=== PATIENT | female | born 1975 | race Caucasian/White ===

== ENCOUNTER 2018-05-07 09:25 | Outpatient (CLI) | payer BC | END 2018-05-07 09:26 | disposition home or self-care (01) | LOC: BICRAD 09:25 | PROVIDERS: ATTEND Family Medicine | DX: S93.401D Sprain of unspecified ligament of right ankle, subsequent encounter (principal) ==

== ENCOUNTER 2019-04-17 07:47 | Outpatient (CLI) | payer BC ==
--- NOTE | 2019-04-17 08:17 | ULT ---
US Thyroid STANDARD History: [E03.9.] Comparison: None. Findings: Real-time grayscale and color evaluation of the thyroid was performed. The isthmus measures 2 mm in AP dimension. Right lobe measures 4.3 x 1.4 x 1.1 cm and the left lobe measures 3.9 x 1.1 x 1.1 cm. The thyroid is very heterogeneous with lobular margins. In the right lobe of the thyroid is a solid hypoechoic are than tall nodule measuring 1 x 0.6 x 0.8 c m with lobular margins without echogenic foci. This is TIRADS 4: Moderately suspicious. Given its size, follow-up in 6 months-1 year is recommended. Impression: TIRADS 4: Moderately suspicious nodule right lobe of the thyroid. Follow-up ultrasound in 6 months-1 year is recommended per TIRADS criteria.
== END 2019-04-17 07:48 | disposition home or self-care (01) ==
LOC: BICULT 07:47
PROVIDERS: ATTEND Family Medicine
DX: E03.9 Hypothyroidism, unspecified (principal)
CPT/HCPCS: 76536

== ENCOUNTER 2019-07-03 07:50 | Outpatient (CLI) | payer BC ==
--- NOTE | 2019-07-03 08:16 | MMO ---
Bilateral MAMMO Bilat Screen [facility]. CLINICAL HISTORY: Patient is 44 years old and is seen for screening. The patient has the following family history of breast cancer: maternal grandmother and maternal aunt, great, x2. The patient has a history of Skin cancer at age 21. VIEWS: The views performed were: bilateral craniocaudal with tomosynthesis and bilateral mediolateral oblique with tomosynthesis. FILMS COMPARED: The present examination has been compared to prior imaging studies performed at [facility] on 07/13/2014, 06/27/2016, 06/28/2017 and 07/02/2018. MAMMOGRAM FINDINGS: The breasts are heterogeneously dense, which could obscure a lesion on mammography. There are no suspicious masses, suspicious calcifications, or new areas of architectural distortion. IMPRESSION: THERE IS NO MAMMOGRAPHIC EVIDENCE OF MALIGNANCY. A ROUTINE FOLLOW-UP MAMMOGRAM IN 1 YEAR IS RECOMMENDED. THE RESULTS OF THIS EXAM WERE SENT TO THE PATIENT. ACR BI-RADS Category 1 - Negative MAMMOGRAPHY NOTE: 1. A negative mammogram report should not delay a biopsy if a dominant of clinically suspicious mass is present. 2. Approximately 10% to 15% of breast cancers are not detected by mammography. 3. Adenosis and dense breasts may obscure an underlying neoplasm. Reported by: MOOKIE KAYE MD Electonically Signed: [id number]
== END 2019-07-03 07:51 | disposition home or self-care (01) ==
LOC: BICMAMMO 07:50
PROVIDERS: ATTEND Family Medicine
DX: Z12.31 Encounter for screening mammogram for malignant neoplasm of breast (principal); Z80.3 Family history of malignant neoplasm of breast; Z85.828 Personal history of other malignant neoplasm of skin
CPT/HCPCS: 77063; 77067

== ENCOUNTER 2019-10-12 15:09 | Outpatient (CLI) | payer BC ==
--- NOTE | 2019-10-12 15:37 | ULT ---
Thyroid ultrasound: 10/12/2019 COMPARISON: 04/17/2019 HISTORY: Reevaluate thyroid nodule TECHNIQUE: Multiplanar grayscale sonographic imaging of the thyroid gland obtained. FINDINGS: Thyroid isthmus measures 2 mm in AP dimension. Right lobe measures 3.7 x 1.0 x 1.2 cm and l eft lobe measures 3.4 x 1.1 x 1.2 cm. There is a subtle solid isoechoic nodule within the medial aspect of the right lobe of the thyroid gland, measuring approximately 5 x 6 x 6 mm, less conspicuous than on the prior examination. There is a cyst within the inferior aspect of the left lobe measuring 1.1 x 0.5 x 0.4 cm. No dominant thyroid nodules apparent on either side. IMPRESSION: TI-RADS category 3-mildly suspicious. No further follow-up advised.
== END 2019-10-12 15:10 | disposition home or self-care (01) ==
LOC: BICULT 15:09
PROVIDERS: ATTEND Otolaryngology Plastic Surgery within the Head & Neck
DX: E04.1 Nontoxic single thyroid nodule (principal)
CPT/HCPCS: 76536

== ENCOUNTER 2020-08-10 13:16 | Outpatient (CLI) | payer BC ==
--- NOTE | 2020-08-11 08:56 | MMO ---
Bilateral MAMMO Bilat Screen [facility]. CLINICAL HISTORY: Patient is 45 years old and is seen for screening. The patient has the following family history of breast cancer: maternal grandmother and maternal aunt, great, x2. The patient has a history of Skin cancer at age 21. VIEWS: The views performed were: bilateral craniocaudal with tomosynthesis and bilateral mediolateral oblique with tomosynthesis. FILMS COMPARED: The present examination has been compared to prior imaging studies performed at [facility] on 06/27/2016, 06/28/2017, 07/02/2018 and 07/03/2019. This study has been interpreted with the assistance of computer-aided detection. MAMMOGRAM FINDINGS: The breasts are heterogeneously dense, which could obscure a lesion on mammography. There are no suspicious masses, suspicious calcifications, or new areas of architectural distortion. IMPRESSION: THERE IS NO MAMMOGRAPHIC EVIDENCE OF MALIGNANCY. A ROUTINE FOLLOW-UP MAMMOGRAM IN 1 YEAR IS RECOMMENDED. THE RESULTS OF THIS EXAM WERE SENT TO THE PATIENT. ACR BI-RADS Category 1 - Negative MAMMOGRAPHY NOTE: 1. A negative mammogram report should not delay a biopsy if a dominant of clinically suspicious mass is present. 2. Approximately 10% to 15% of breast cancers are not detected by mammography. 3. Adenosis and dense breasts may obscure an underlying neoplasm. Reported by: GUIDO BEATTY MD Electonically Signed: [id number]
== END 2020-08-10 13:17 | disposition home or self-care (01) ==
LOC: BICMAMMO 13:16
PROVIDERS: ATTEND Family Medicine
DX: Z12.31 Encounter for screening mammogram for malignant neoplasm of breast (principal); Z80.3 Family history of malignant neoplasm of breast; Z85.828 Personal history of other malignant neoplasm of skin
CPT/HCPCS: 77063; 77067

== ENCOUNTER 2020-11-11 14:38 | Outpatient (CLI) | payer BC ==
--- NOTE | 2020-11-11 15:31 | ULT ---
THYROID ULTRASOUND INDICATION: Thyroid nodule TECHNIQUE: Grayscale and color Doppler images were obtained of the thyroid gland. COMPARISON: Prior thyroid ultrasound dated October 12, 2019 FINDINGS: Right thyroid lobe: The right thyroid lobe measures 1.1 x 3.7 x 1.2 cm. There is an 8 x 6 x 6 mm hypo echoic solid nodule within the mid to lower pole the right thyroid gland. This is likely stable to the prior exam. Thyroid isthmus: The thyroid isthmus measures 0.18 cm. Left thyroid lobe: The left thyroid lobe measures 1.0 x 3.5 x 1.0 cm. There is a 1 x 0.6 x 0.5 cm cys t within the lower pole left thyroid gland. IMPRESSION: 1. TIRADS 3 lesion of the right thyroid lobe. No additional sonographic follow-up is recommended. 2. TIRADS 1 lesion of the left thyroid lobe. No additional sonographic follow-up is recommended.
== END 2020-11-11 14:39 | disposition home or self-care (01) ==
LOC: BICULT 14:38
PROVIDERS: ATTEND Otolaryngology Plastic Surgery within the Head & Neck
DX: E04.1 Nontoxic single thyroid nodule (principal); E07.9 Disorder of thyroid, unspecified
CPT/HCPCS: 76536

== ENCOUNTER 2021-01-25 09:20 | Outpatient (CLI) | payer BC | END 2021-01-25 09:21 | disposition home or self-care (01) | LOC: DTY/OP 09:20 | PROVIDERS: ATTEND Surgery | DX: E66.01 Morbid (severe) obesity due to excess calories (principal) | CPT/HCPCS: 97802 ==

== ENCOUNTER 2021-03-22 10:54 | Outpatient (CLI) | payer BC ==
[2021-03-22 11:47] LABS: Hemoglobin 14.4 g/dL (12.0-15.5); Mean Corpuscular HGB CONC 33.9 g/dL (32.0-36.0); Mean Corpuscular Hemoglobin 29.2 pg (27.0-33.0); Mean Corpuscular Volume 86.2 fl (81.6-98.3); Mean Platelet Volume 9.5 fl (7.4-10.4); Platelet Count 268 10x3/uL (150-450); RBC Distribution Width 12.4 % (11.5-14.5); Red Blood Cell (RBC) Count 4.93 10x6/uL (3.90-5.03); White Blood Cell (WBC) Count 6.7 10x3/uL (3.5-10.5)
[2021-03-22 12:11] LABS: ALT (SGPT) 15 U/L (8-55); AST (SGOT) 19 U/L (5-34); Alkaline Phosphatase 72 U/L (40-110); Anion Gap 14 mmol/L (10-20); BUN (Urea Nitrogen) 16 mg/dL (7.0-18.7); Bilirubin, Total 0.4 mg/dL (0.2-1.2); Calc. Creatinine Clearance 0 mL/min (70-130); Calcium 9.1 mg/dL (7.8-10.44); Carbon Dioxide 25 mmol/L (22-29); Chloride 101 mmol/L (98-107); Globulin 2.4 g/dL (2.4-3.5); Glucose 88 mg/dL (70-105); Potassium 4.1 mmol/L (3.5-5.1); Protein, Total 6.4 g/dL (6.0-8.3); Sodium 136 mmol/L (136-145)
[2021-03-22 14:48] LABS: Hemoglobin A1c 5.2 % (4.0-6.0)
[2021-03-22 22:36] LABS: SARS-CoV-2 PCR by NAA Not Detected (NotDetected)
== END 2021-03-22 10:55 | disposition home or self-care (01) ==
LOC: LABBT 10:54
PROVIDERS: ATTEND Surgery
DX: Z01.818 Encounter for other preprocedural examination (principal); E66.01 Morbid (severe) obesity due to excess calories; Z20.822 Contact with and (suspected) exposure to COVID-19
CPT/HCPCS: 71046; 80053; 83036; 85027; 87635; 93005; 93010; U0003; U0005

== ENCOUNTER 2021-03-22 11:00 | Inpatient (IN) | payer BC ==
[2021-03-24 12:52] VITALS: BMI 42.2
[2021-03-27] MEDS ORDERED: Heparin 5,000 UNITS/ML VIAL ONE (08:21)
[2021-03-27] MEDS ORDERED: Fentanyl 100 MCG/2 ML VIAL ONE ×2 (10:49→12:50)
[2021-03-27] MEDS ORDERED: Lidocaine 2% Jelly 5 ML TUBE ONE (10:49)
[2021-03-27] MEDS ORDERED: SUGAMMADEX SODIUM 500 MG/5 ML VIAL ONE (10:49)
[2021-03-27] MEDS ORDERED: Fentanyl 250 MCG/5 ML VIAL ONE (10:50)
[2021-03-27] MEDS ORDERED: Bupivacaine 0.25% HCL 30 ML VIAL ONE (10:57)
[2021-03-27] MEDS ORDERED: Lidocaine 1% w/Epinephrine 1:100K 20 ML VIAL ONE (10:57)
[2021-03-27] MEDS ORDERED: PROPOFOL 200 MG/20 ML VIAL ONE (11:09)
[2021-03-27] MEDS ORDERED: Esmolol 100 MG/10 ML VIAL ONE (11:09)
[2021-03-27] MEDS ORDERED: Dexamethasone 20 MG/5 ML VIAL ONE (11:09)
[2021-03-27] MEDS ORDERED: Rocuronium Bromide 10 MG/ML (10ML VIAL) ONE (11:09)
[2021-03-27] MEDS ORDERED: Lidocaine 1% PF 5 ML VIAL ONE (11:09)
[2021-03-27] MEDS ORDERED: Ondansetron PF 4 MG/2 ML Vial ONE ×2 (11:09→13:19)
[2021-03-27] MEDS ORDERED: Promethazine HCl 25 MG/ML VIAL SLOW IVP PRN (12:57)
[2021-03-27] MEDS ORDERED: Promethazine HCl 25 MG/ML VIAL IM PRN ×4 (12:57→14:00)
[2021-03-27] MEDS ORDERED: Ondansetron HCl/PF 4 MG/2 ML Vial IVP PRN (12:57)
[2021-03-27] MEDS ORDERED: Dextrose 5% in Water 1,000 ML IV PRN (13:07)
[2021-03-27] MEDS ORDERED: hydrALAZINE 20 MG/ML VIAL SLOW IVP PRN (13:07)
[2021-03-27] MEDS ORDERED: Ondansetron PF 4 MG/2 ML Vial IVP PRN ×3 (13:07→14:00)
[2021-03-27] MEDS ORDERED: Dextrose 50% Abboject 50 ML SYRINGE SLOW IVP PRN (13:07)
[2021-03-27] MEDS ORDERED: diphenhydrAMINE 50 MG/ML VIAL IVP PRN (13:07)
[2021-03-27] MEDS ORDERED: Hydrocodone-Acetamin 15 ML UDCUP PO PRN (13:07)
[2021-03-27] MEDS ORDERED: Promethazine HCl 25 MG/ML VIAL ONE (13:38)
[2021-03-27] MEDS ORDERED: diphenhydrAMINE 50 MG/ML VIAL IM/IV PRN ×2 (13:45→14:00)
[2021-03-27] MEDS ORDERED: diphenhydrAMINE 25 MG CAP PO PRN ×2 (13:45→14:00)
[2021-03-27] MEDS ORDERED: Fentanyl CADD 100 ML IVPB SCH (13:45)
[2021-03-27] MEDS ORDERED: Zolpidem Tartrate 5 MG TAB PO PRN ×2 (13:45→14:00)
[2021-03-27] MEDS ORDERED: Naloxone HCl 0.4 mg/ml Vial IV PRN (14:00)
[2021-03-27] MEDS ORDERED: CEFAZOLIN 2 GM in Premix Bag 1 BAG IVPB SCH (16:00)
[2021-03-27] MEDS: CEFAZOLIN 2 GM in Premix Bag 1 BAG IVPB SCH (20:38)
[2021-03-27] MEDS: D5 1/2 NS w/20 mEq KCL 1,000 ML IV SCH ×2 (20:38→20:56)
[2021-03-28] MEDS: CEFAZOLIN 2 GM in Premix Bag 1 BAG IVPB SCH (03:13)
[2021-03-28 05:53] LABS: #Lymphocytes 1.4 thou/uL (1.20-3.40); #Monocytes 0.8 thou/uL (0.11-0.59); #Neutrophils 11.8 thou/uL (1.40-6.50); %Basophils 0.2 % (0.0-1.0); %Lymphocytes 9.7 % (21.0-51.0); %Monocytes 5.4 % (0.0-10.0); %Neutrophils 84.7 % (42.0-75.0); Mean Corpuscular HGB CONC 32.8 g/dL (32.0-36.0); Mean Corpuscular Hemoglobin 29.1 pg (27.0-31.0); Mean Corpuscular Volume 88.8 fL (78.0-98.0); Mean Platelet Volume 7.5 fL (7.4-10.4); Platelet Count 244 thou/uL (130-400); RBC Distribution Width 11.7 % (11.5-14.5); Red Blood Cell (RBC) Count 4.48 mill/uL (4.20-5.40); White Blood Cell (WBC) Count 13.9 thou/uL (4.8-10.8)
[2021-03-28] MEDS: D5 1/2 NS w/20 mEq KCL 1,000 ML IV SCH (05:59)
[2021-03-28 06:13] LABS: Anion Gap 12 mmol/L (10-20); BUN (Urea Nitrogen) 4 mg/dL (7.0-18.7); Calc. Creatinine Clearance 220 mL/min (70-130); Calcium 8.5 mg/dL (7.8-10.44); Carbon Dioxide 23 mmol/L (22-29); Chloride 104 mmol/L (98-107); Glucose 177 mg/dL (70-105); Potassium 3.7 mmol/L (3.5-5.1); Sodium 135 mmol/L (136-145)
[2021-03-28] MEDS ORDERED: Enoxaparin Sodium 40 MG/0.4 ML SYRINGE SC SCH (09:00)
[2021-03-28] MEDS ORDERED: Pantoprazole 40 MG VIAL IVP SCH (09:00)
[2021-03-28] MEDS ORDERED: Hydrocodone-Acetamin 15 ML UDCUP ONE (12:05)
[2021-03-28 15:45] VITALS: BP 116/80; TEMP 98.8
== END 2021-03-28 16:55 | disposition home or self-care (01) | DRG 327 ==
LOC: SURG A 03-27 07:36
PROVIDERS: ADMIT Surgery; ATTEND Surgery
PROC: 0D164ZA Bypass Stomach to Jejunum, Percutaneous Endoscopic Approach (ICD-10-PCS; principal; 2021-03-27)
DX: K21.9 Gastro-esophageal reflux disease without esophagitis (principal); Z68.41 Body mass index [BMI] 40.0-44.9, adult; E66.01 Morbid (severe) obesity due to excess calories; Z98.84 Bariatric surgery status; Z90.710 Acquired absence of both cervix and uterus; Z88.1 Allergy status to other antibiotic agents; Z88.2 Allergy status to sulfonamides; Z82.49 Family history of ischemic heart disease and other diseases of the circulatory system
CPT/HCPCS: 36415; 80048; 85025; C9113; J0690; J1100; J1644; J1650; J2405; J2550; J2704; J3010; J3480; S0020

== ENCOUNTER 2021-08-17 15:07 | Outpatient (CLI) | payer BC | END 2021-08-17 15:08 | disposition home or self-care (01) | LOC: BICMAMMO 15:07 | PROVIDERS: ATTEND Family Medicine | DX: Z12.31 Encounter for screening mammogram for malignant neoplasm of breast (principal); Z80.3 Family history of malignant neoplasm of breast; Z85.828 Personal history of other malignant neoplasm of skin | CPT/HCPCS: 77063; 77067 ==

== ENCOUNTER 2022-01-03 09:19 | Outpatient (CLI) | payer BC | END 2022-01-03 09:20 | disposition home or self-care (01) | LOC: BICRAD 09:19 | PROVIDERS: ATTEND Family Medicine | DX: J20.9 Acute bronchitis, unspecified (principal) | CPT/HCPCS: 71046 ==

== ENCOUNTER 2022-09-26 08:22 | Outpatient (CLI) | payer BC | END 2022-09-26 08:23 | disposition home or self-care (01) | LOC: BICMAMMO 08:22 | PROVIDERS: ATTEND Family Medicine | DX: Z12.31 Encounter for screening mammogram for malignant neoplasm of breast (principal); Z85.828 Personal history of other malignant neoplasm of skin; Z80.3 Family history of malignant neoplasm of breast | CPT/HCPCS: 77063; 77067 ==

== ENCOUNTER 2022-12-26 08:51 | Outpatient (CLI) | payer BC | END 2022-12-26 08:52 | disposition home or self-care (01) | LOC: BICULT 08:51 | PROVIDERS: ATTEND Otolaryngology Plastic Surgery within the Head & Neck | DX: E04.9 Nontoxic goiter, unspecified (principal); E04.1 Nontoxic single thyroid nodule | CPT/HCPCS: 76536 ==

== ENCOUNTER 2023-10-16 12:34 | Outpatient (CLI) | payer BC | END 2023-10-16 12:35 | disposition home or self-care (01) | LOC: BICMAMMO 12:34 | PROVIDERS: ATTEND Family Medicine | DX: Z12.31 Encounter for screening mammogram for malignant neoplasm of breast (principal); R92.1 Mammographic calcification found on diagnostic imaging of breast; Z80.3 Family history of malignant neoplasm of breast; Z85.828 Personal history of other malignant neoplasm of skin | CPT/HCPCS: 77063; 77067 ==

== ENCOUNTER 2023-10-29 08:55 | Outpatient (CLI) | payer BC | END 2023-10-29 08:56 | disposition home or self-care (01) | LOC: BICMAMMO 08:55 | PROVIDERS: ATTEND Family Medicine | DX: R92.1 Mammographic calcification found on diagnostic imaging of breast (principal) | CPT/HCPCS: G0279 ==

== ENCOUNTER 2023-11-29 06:01 | Day surgery (SDC) | payer BC ==
[2023-11-28 08:52] VITALS: BMI 23.1
[2023-11-29] MEDS ORDERED: Sodium Chloride 0.9% 100 ML ONE (07:01)
[2023-11-29] MEDS ORDERED: CEFAZOLIN 2 GM VIAL ONE (07:01)
[2023-11-29] MEDS ORDERED: EPINEPHrine 1 MG/ML VIAL ONE (08:24)
[2023-11-29] MEDS ORDERED: Bupivacaine 0.25% HCL 30 ML VIAL ONE (08:24)
[2023-11-29] MEDS ORDERED: Lidocaine 2% PF 5 ML VIAL ONE ×2 (09:05→09:17)
[2023-11-29] MEDS ORDERED: Bupivacaine PF 0.5% 30 ML VIAL ONE (09:05)
[2023-11-29] MEDS ORDERED: Famotidine/PF 20 mg/2ml Vial ONE (09:12)
[2023-11-29] MEDS ORDERED: Midazolam HCl 2 mg/2 ml Vial ONE (09:13)
[2023-11-29] MEDS ORDERED: fentaNYL 50 mcg/mL 1 mL Vial ONE ×2 (09:15→09:37)
[2023-11-29] MEDS ORDERED: PROPOFOL 20 ML ONE (09:15)
[2023-11-29] MEDS ORDERED: Dexamethasone 4 mg/ml Vial ONE (09:35)
[2023-11-29] MEDS ORDERED: Ketorolac Tromethamine 30 MG (1 mL) VIAL ONE (09:35)
[2023-11-29] MEDS ORDERED: Metoclopramide HCl 10 MG (2 mL) VIAL ONE (09:35)
[2023-11-29] MEDS ORDERED: Ondansetron PF 4 MG/2 ML Vial ONE (09:35)
[2023-11-29] MEDS ORDERED: ePHEDrine Sulfate 50 MG/10 ML VIAL ONE (09:43)
== END 2023-11-29 12:25 | disposition home or self-care (01) ==
LOC: SDC 06:01
PROVIDERS: ATTEND Surgery
PROC: 0HBU0ZZ Excision of Left Breast, Open Approach (ICD-10-PCS; principal; 2023-11-29)
DX: R92.0 Mammographic microcalcification found on diagnostic imaging of breast (principal); E07.9 Disorder of thyroid, unspecified; F10.90 Alcohol use, unspecified, uncomplicated; Z90.49 Acquired absence of other specified parts of digestive tract; Z90.410 Acquired total absence of pancreas; Z79.890 Hormone replacement therapy; Z98.890 Other specified postprocedural states; Z88.1 Allergy status to other antibiotic agents; Z88.2 Allergy status to sulfonamides
CPT/HCPCS: 19281; 76098; 88307; J0171; J1100; J1885; J2001; J2250; J2405; J2704; J2765; J3010; J3490; S0020; S0028

== ENCOUNTER → 2024-10-28 | Outpatient (CLI) | payer BC | LOC: BICMAMMO 12:30 | PROVIDERS: ATTEND Family Medicine | DX: Z12.31 Encounter for screening mammogram for malignant neoplasm of breast (principal); Z80.3 Family history of malignant neoplasm of breast; Z85.828 Personal history of other malignant neoplasm of skin; Z91.89 Other specified personal risk factors, not elsewhere classified | CPT/HCPCS: 77063; 77067 ==